=== PATIENT | male | born 1945 | race Caucasian/White ===

== ENCOUNTER 2021-05-17 12:27 | Emergency (ER) | payer MEDICARE, SELFPAY ==
[2021-05-17 12:40] VITALS: BP 154/85; PULSE 66; RESP 16; TEMP 36.8; O2SAT 100
--- NOTE | 2021-05-17 13:17 | ED.EAR ---
HPI - Ear Problem General Chief complaint: Ear Stated complaint: fb in left ear Time Seen by Provider: 05/17/21 13:18 Source: patient, RN notes reviewed and old records reviewed Mode of arrival: ambulatory Limitations: no limitations History of Present Illness HPI Narrative: 75 year old male who presents to [facility] with complaints of foreign body in his left ear. He states that a piece off of his hearing aid is lodged in his ear, that it has been in there since Sunday. He went to his lead process engineer but he was unable to get it out. Patient denies any acute pain to his left ear, decreased hearing since he can't use hearing aide to his left ear. Complaint: foreign body (left ear) Related Data Home Medications Medication Instructions Recorded Confirmed atorvastatin See Rx Instructions .ROUTE .COMPLEX 05/17/21 05/17/21 Allergies Allergy/AdvReac Type Severity Reaction Status Date / Time No Known Allergies Allergy Verified 05/17/21 12:56 Review of Systems Review of Systems: CONSTITUTIONAL: Denies fever, chills, or sweats. EYES: Denies visual changes, redness, or discharge. ENT: Denies rhinorrhea, congestion, sore throat, foreign body left ear peiece of his hearing aid tip lodged in ear canal CARDIOVASCULAR: Denies chest pain, palpitations, or edema. RESPIRATORY: Denies cough or dyspnea. GASTROINTESTINAL: Denies abdominal pain, nausea, vomiting, or diarrhea. GENITOURINARY: Denies dysuria or hematuria. SKIN: Denies rash or itching. MUSCULOSKELETAL: Denies back pain, joint pain, or myalgia. NEUROLOGIC: Denies headache, numbness, or weakness. PSYCHIATRIC: Denies anxiety or depression. All systems reviewed & are unremarkable except as noted in HPI and below PMFSH Comments At time of signature, agree with nursing past medical, surgical, social and family history. There is no relevant family history pertinent to the presenting complaint Exam Narrative: GENERAL: Well-appearing, well-nourished, and in no acute distress. HEAD: Normocephalic, atraumatic. EYES: PERRLA and EOMI. ENT: Nares clear, no rhinorrhea or epistaxis. Mucous membranes moist.TM right normal with good light reflex, left TM occluded by piece of plastic off of hearing aid, throat normal with no lesions or exudates NECK: Supple.no lymphadenopathy CHEST: Clear to auscultation. No respiratory distress.SAO2 100% on room air. HEART: Regular rate and rhythm. No murmur heard. Normal peripheral pulses. ABDOMEN: Soft, nontender, nondistended, normal active bowel sounds. EXTREMITIES: Normal range of motion. No edema. SKIN: Warm, dry, no rash. NEURO: No focal deficits. Alert and oriented x3. Course Vital Signs Vital signs: Vital Signs Temperature 36.8 C 05/17/21 12:40 Pulse Rate 66 05/17/21 12:40 Respiratory Rate 16 05/17/21 12:40 Blood Pressure 154/85 H 05/17/21 12:40 Pulse Oximetry 100 05/17/21 12:40 Temperature 36.8 C 05/17/21 12:40 Pulse Rate 66 05/17/21 12:40 Respiratory Rate 16 05/17/21 12:40 Blood Pressure 154/85 H 05/17/21 12:40 Pulse Oximetry 100 05/17/21 12:40 Procedures FB Removal Ear Foreign Body #1: Foreign Body Removal Date: 05/17/21 Foreign Body Removal Time: 13:25 Location: ear canal (L) Foreign Body Suspected: other (plastic piece off of hearing aid) TM intact pre-procedure: yes Foreign Body Removed: yes Foreign Body Removal Technique: forceps (alligator) Tympanic Membrane Intact Post Procedure: Yes Patient Tolerated Procedure: well Complications: none Additional Comments: TM left ear normal with good light reflex, no irritation or redness of ear canal. Medical Decision Making Differential Diagnosis Differential Diagnosis: Foreign body left ear, discomfort to left ear,decreased hearing left ear. Medical Records Medical records reviewed: Yes I reviewed the external patient's medical records. Vital Signs Vital Signs: Vital Signs Temperatur
== END 2021-05-17 13:25 | disposition home or self-care (01) ==
PROVIDERS: Emergency Provider Registered Nurse; PCP Family Medicine
DX: T16.2XXA Foreign body in left ear, initial encounter (principal); E78.00 Pure hypercholesterolemia, unspecified; X58.XXXA Exposure to other specified factors, initial encounter
CPT/HCPCS: 69205; 99212; G0463